=== PATIENT | male | born 1940 | race Caucasian/White ===

== ENCOUNTER 2018-09-02 23:14 | Emergency (ER) | payer OTHER ==
[2018-09-02 23:39] VITALS: BP 136/72; PULSE 84; TEMP 97.9; BMI 35.4
--- NOTE | 2018-09-03 00:22 | PDOC ---
History of Present Illness - General Chief Complaint: Injury Stated Complaint: FALL/EYE LACERATION Time Seen by Provider: 09/02/18 23:50 - History of Present Illness Initial Comments: Tae Jama is a 77yo man who presents following a mechanical fall tonight. He states that he "tripped over his own feet" and fell. He denies any preceeding symptoms including chest pain, SOB, lightheadedness, or neurological symptoms. He denies LOC, and he was able to get up on his own. He denies any new symptoms following the fall including one-sided weakness, difficulty walking , confusion, or other neurological changes. Past History - Past Medical History Allergies/Adverse Reactions: Allergies Allergy/AdvReac Type Severity Reaction Status Date / Time Penicillins Allergy Verified 09/02/18 23:36 COPD: No Disorders: Yes (Prostate Ca) HTN: Yes Other medical history: Skin Ca - Immunization History Immunization Up to Date: Yes - Suicide/Smoking/Psychosocial Hx Smoking History: Unknown if ever smoked Have you smoked in the past 12 months: No Information on smoking cessation initiated: No Hx Alcohol Use: No Drug/Substance Use Hx: No Review of Systems - Review of Systems Comments:: General: No fevers, no chills, no weight or appetite change, no malaise HEENT: No changes in vision, no changes in hearing, no congestion, no sore throat CV: No chest pain, no palpitations, no LE edema Pulm: No SOB, no cough, no wheezing GI: No nausea or vomiting, no change in bowel habits, no melena : No frequency, no urgency, no dysuria Musc: No back pain, no joint swelling, no recent injury Skin: No rash, no lesions, no erythema Endo: No excessive thirst, no heat/cold intolerance Heme: No unusual bruising or bleeding, no swollen glands Neuro: No syncope, no numbness/tingling, no focal weakness Vasc: No claudication Psych: No recent change in mood, no SI or HI *Physical Exam - Vital Signs Last Vital Signs Temp Pulse Resp BP Pulse Ox 97.9 F 84 16 136/72 100 09/02/18 23:33 09/02/18 23:33 09/02/18 23:33 09/02/18 23:33 09/02/18 23:33 - Physical Exam Comments: General: Comfortable, no acute distress HEENT: PERRL, EOMI, MMM, voice normal, normal neck ROM, no posterior neck tenderness. Left forehead w/ 1cm linear laceration over eyebrow, no active bleeding, no surrounding erythema or edema, no palpable underlying defect Cards: RRR, no murmur appreciated Pulm: Comfortable on room air, clear to auscultation bilaterally Abd: Soft, nontender, nondistended Ext: Atraumatic. No LE edema. ROM intact Vasc: Extremities WWP Neuro: A&Ox3, CN grossly intact, normal speech, motor/sensory grossly intact and symmetric Psych: Mood appropriate to situation Procedures - Laceration/Wound Repair Left Lateral Head Wound Length: to 2.5 cm Wound Explored: clean Wound's Depth, Shape: superficial Irrigated w/ Saline: Yes Wound Repaired With: Dermabond ED Treatment Course - RADIOLOGY Radiology Studies Ordered: Category Date Time Status HEAD CT WITHOUT CONTRAST [CT] Stat CT Scan 09/03/18 00:20 Ordered Medical Decision Making - Medical Decision Making 09/03/18 00:21 Tae Jama is a 77yo man who presents with a left forehead laceration following an apparently mechanical fall tonight. - Laceration to left forehead but otherwise benign exam, no neuro deficits - CT head, CT c-spine - Lac to be repaired - Pt reports tetanus within the past 5 years, does not remember exact date 09/03/18 00:54 - CT negative for acute injury - Forehead laceration cleaned and explored at bedside. Per pt request, wound was repaired with dermabond. The edges were well approximated, and adequate hemostasis was achieved. - Home care, follow up, and return precautions were discussed at length with Mr Jama. Will give contact info for the [facility] as he no longer has a PMD. Discussed with Dr Gant. Xiomara Sidhu PGY2 *DC/Admit/Observation/Transfer Diagnosis at time of Disposition: Fall Qualifiers: Encounter type: initial encounter Qualified Code(s): W19.XXXA - Unspecified fall, initial encounter Forehead laceration Qualifiers: Encounter type: initial encounter Qualified Code(s): S01.81XA - Laceration without foreign body of other part of head, initial encounter - Discharge Dispostion Disposition: HOME Condition at time of disposition: Stable Decision to Admit order: No - Referrals Referrals: [facility] [place] [Provider Group] - Patient Instructions Printed Discharge Instructions: DI for Laceration Repair With Dermabond Additional Instructions: Discharge Instructions: You were seen in the emergency department following a fall. You had a head CT that did not show any concerning injuries. You had a laceration that was repaired with a skin glue called Dermabond. Home Care and Follow Up: - The dermabond will fall off by itself over the next 1-2 weeks. It does not need to be removed - Try not to rub or scrub the wound - It is OK to wash your face and shower starting tomorrow. You may get the wound wet, but do not scrub it as the glue could come off - Allow the glue to fall off by itself. Do not pull at loose edges - You may use over the counter medications as needed for pain at home. 650- 1000mg acetaminophen (Tylenol) or 600mg ibuprofen (Motrin or Advil) can be used every 6-8 hours. If needed for continued pain, these medications may be alternated every 3-4 hours. For example, if you take ibuprofen at 9am, you may take acetaminophen at noon, ibuprofen at 3pm, etc. - It is recommended that you take ibuprofen with food to prevent upset stomach. - You may wish to apply an ice pack to your injury to help control pain and swelling. This may be applied as tolerated for the next 2-3 days. - Make an appointment to follow up with primary care within the next 1-2 weeks. You have been given contact information for the [facility]. - Seek immediate care if you have any worsening symptoms, recurrent falls, severe headache that you cannot control with mediations, any neurological symptoms (one-sided weakness, confusion, changes in speech), multiple episodes of vomiting per hour for several hours, excessive sleepiness, or any other medical emergency. - Post Discharge Activity
--- NOTE | 2018-09-03 00:44 | PDOC ---
Documentation entered by Paula Amato SCRIBE, acting as scribe for Penny Gant MD. Penny Gant MD: This documentation has been prepared by the scribe, Paula Amato SCRIBE, under my direction and personally reviewed by me in its entirety. I confirm that the documentation accurately reflects all work, treatment, procedures, and medical decision making performed by me. Attending Attestation - Resident Resident Name: Xiomara Sidhu - HPI HPI: 09/03/18 00:25 The patient is a 77 year old male with a past medical history significant for HTN presents to the emergency department s/p a mechanical fall. The patient reports he tripped over his own feet, resulting in the fall. The patient reports he sustained a laceration to his left eyebrow. Denies LOC. Denies chest pain, dizziness or SOB. Allergies: Penicillins - Physicial Exam PE: 09/03/18 00:36 well-nourished well-developed 77-year-old male presents with head trauma status post mechanical fall while leavinga restaurant Head there nely left sided forehead laceration above his eyebrow. 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 He does have a superficial abrasion on his lower leg. Abdomen protuberant, nontender, no rebound or guarding Skin warm and dry. Neuro alert and oriented 3, motor strength 5 over 5 bilaterally, ambulatory 09/03/18 00:42 - Medical Decision Making 09/03/18 00:43 ct scan of head : no acute intracranial pathology,no skull pathology plan wound will be cleansed and sutured and pt d/c home
== END 2018-09-03 01:23 | disposition home or self-care (01) ==
LOC: JER 23:14
PROC: 0HQ1XZZ Repair Face Skin, External Approach (ICD-10-PCS; principal; 2018-09-02)
DX: S01.112A Laceration without foreign body of left eyelid and periocular area, initial encounter (principal); W01.0XXA Fall on same level from slipping, tripping and stumbling without subsequent striking against object, initial encounter; Y93.89 Activity, other specified; Y92.018 Other place in single-family (private) house as the place of occurrence of the external cause; Y99.8 Other external cause status; I10 Essential (primary) hypertension; Z85.46 Personal history of malignant neoplasm of prostate; Z85.828 Personal history of other malignant neoplasm of skin
CPT/HCPCS: 12011-25; 70450-TC; 99281-25

== ENCOUNTER 2019-11-04 17:52 | Emergency (ER) | payer OTHER ==
[2019-11-04 18:27] VITALS: BMI 36.6
--- NOTE | 2019-11-04 18:46 | PDOC ---
History of Present Illness - General Chief Complaint: Injury Stated Complaint: FALL Time Seen by Provider: 11/04/19 18:45 History Source: Patient Exam Limitations: No Limitations - History of Present Illness Initial Comments: 11/04/19 18:46 Tae Jama is a 79M with PMH HTN, HLD, CHF, ?Parkinson's, basal cell carcinoma L aguilera, presenting with mechanical fall onto face and right shoulder. Patient was walking his large Labrador dog when a new mailman approached and began to doug after him with patient holding leash. Fell forward, hit head on side of car, then ground along right shoulder. Denies LOC, vision changes, N/V, dental fractures, chest pain, SOB. Per son no AMS. Takes 81mg ASA but no other AC. Also has right shoulder/elbow pain and limited ability to move arm, denies weakness, numbness to that arm. No other injuries noted. Last tetanus in the last 10 years. Allergy to PCN, unclear reaction, but son has true anaphylaxis allergy. Meds: losaratan, atorvastatin, Sinemet, Lasix, chemo cream for BCC Denies alcohol/drugs/tobacco. Past History - Medical History Allergies/Adverse Reactions: Allergies Allergy/AdvReac Type Severity Reaction Status Date / Time Penicillins Allergy Verified 11/04/19 18:20 Cancer: Yes (prostate skin) COPD: No Disorders: Yes (Prostate Ca) HTN: Yes Other medical history: parkinson - Immunization History Immunization Up to Date: Yes - Psycho-Social/Smoking History Smoking History: Former smoker Have you smoked in the past 12 months: No Information on smoking cessation initiated: No - Substance Abuse Hx (Audit-C & DAST Scrn) How often the patient has a drink containing alcohol: Monthly or less Number of drinks the patient has on a typical day: 1 or 2 How often the patient has six or more drinks on one occasion: Never Score: In Men: 4 or > Positive; In Women: 3 or > Positive: 1 Screen Result (Pos requires Nsg. Audit-10AR): Negative In the last yr the pt used illegal drug/Rx for NonMed reason: No Score: Yes response is considered Positive: 0 Screen Result (Positive result requires Nsg. DAST-10): Negative Review of Systems - Review of Systems Able to Perform ROS?: Yes Constitutional: No: Symptoms Reported HEENTM: No: Symptoms Reported Respiratory: No: Symptoms reported Cardiac (ROS): No: Symptoms Reported ABD/GI: No: Symptoms Reported : No: Symptoms Reported Musculoskeletal: Yes: Joint Swelling, Muscle Pain Integumentary: Yes: Bruising, Lesions, Lumps Neurological: No: Headache, Ataxia, Dizziness Endocrine: No: Symptoms Reported Hematologic/Lymphatic: No: Symptoms Reported All Other Systems: Reviewed and Negative *Physical Exam - Vital Signs Last Vital Signs Temp Pulse Resp BP Pulse Ox 97.7 F 73 18 126/86 98 11/04/19 18:21 11/04/19 18:21 11/04/19 18:21 11/04/19 18:21 11/04/19 18:21 - Physical Exam General Appearance: Yes: Nourished, Appropriately Dressed, Obese, Other (resting in bed with R arm in sling). No: Apparent Distress HEENT: positive: EOMI, MEGHAN, Normal Voice, Symmetrical, Pharynx Normal, Hearing Grossly Normal, Other (no dental issues). negative: Scleral Icterus (R), Scleral Icterus (L), Pharyngeal Erythema, Tonsillar Exudate, Tonsillar Erythema Neck: positive: Trachea midline, Normal Thyroid, Supple. negative: Tender, Rigid, Lymphadenopathy (R), Lymphadenopathy (L), Tender lateral, Tender midline Respiratory/Chest: positive: Lungs Clear, Normal Breath Sounds. negative: Chest Tender, Respiratory Distress, Accessory Muscle Use, Crackles, Rales, Rhonchi, St ridor, Wheezing Cardiovascular: positive: Regular Rhythm, Regular Rate. negative: Murmur Gastrointestinal/Abdominal: positive: Normal Bowel Sounds, Soft, Protuberent. negative: Tender, Organomegaly, Guarding, Rebound, Tenderness Musculoskeletal: positive: Normal Inspection. negative: CVA Tenderness, Decreased Range of Motion, Vertebral Tenderness Extremity: positive: Normal Capillary Refill, Normal Inspection, Pelvis Stable. negative: Normal Range of Motion (LUE: unable to abduct past 90 degrees but full ROM other directions, full ROM at elbow and wrist. RUE limited PROM at shoulder and elbow 2/2 pain, wrist full ROM), Tender, Delayed Capillary Refill, Pedal Edema, Swelling, Calf Tenderness Integumentary: positive: Normal Color, Dry, Warm, Bruising (right face above R forehead) Neurologic: positive: syruper II-XII NML intact, Fully Oriented, Alert, Normal Mood/Affect, Normal Response, Motor Strength 5/5. negative: Facial Droop, Sensory Deficit, Confused Medical Decision Making - Medical Decision Making 11/04/19 18:46 Patient has had mechanical fall onto face and right shoulder without concerning neuro deficits, not on AC. R shoulder possibly dislocated given decreased ROM. Getting CT head/face/c-spine and XR right shoulder/elbow. Tylenol 650mg for pain. Boostrix for face abrasion, due to a tetanus booster. 11/04/19 20:54 CT head no acute pathology CT facial bones no fracture CT c-spine arthritic changes but no fracture XR R shoulder no fracture XR R elbow no fracture Consistent with shoulder sprain vs. strain. ECG NSR with 1st degree AV block, HR 66, QTc 425, TWI in III without LUCAS/D. Will clean out wound, ambulate, and discharge home with sprain precautions and ortho f/u as needed. 11/04/19 21:33 Ambulating well, shoulder moving fine, in NAD. Stable for d/c home. Discharge - Discharge Information Problems reviewed: Yes Clinical Impression/Diagnosis: Facial trauma Qualifiers: Encounter type: initial encounter Qualified Code(s): S09.93XA - Unspecified injury of face, initial encounter Right shoulder pain Qualifiers: Chronicity: acute Qualified Code(s): M25.511 - Pain in right shoulder Condition: Stable Disposition: HOME - Admission No - Follow up/Referral Referrals: Reji Medina MD [Primary Care Provider] - Wilfredo Olivier DO [Staff Physician] - - Patient Discharge Instructions Patient Printed Discharge Instructions: DI for Shoulder Sprain Additional Instructions: Today you were evaluated for a fall onto your face and shoulder pain. All of your CT scans and X-rays are normal and do not show any fractures. Your shoulder hurts because of a muscle injury and will heal over time, but you should fully move your arm as much as possible to avoid having a frozen shoulder. If your shoulder pain does not improve, a referral to an orthopedist has been given. Take Tylenol as needed for pain and use hot packs on your shoulder. Follow-up with your regular doctor in the next few days for further care. - Post Discharge Activity
[2019-11-04] MEDS ORDERED: ACETAMINOPHEN 325 MG TABLET (FP) PO ONE (18:57)
[2019-11-04] MEDS ORDERED: ACETAMINOPHEN 325 MG TABLET (FP) ONE (19:18)
[2019-11-04] MEDS ORDERED: DIPHTH,PERTUSS(ACELL),TET 0.5 ML DISP.SYRIN IM ONE ×2 (20:54→20:56)
[2019-11-04] MEDS ORDERED: BACITRACIN 0.9 GM PACKET ONE (21:15)
[2019-11-04] MEDS ORDERED: BACITRACIN 15 GM TUBE TOPICAL OINTMENT TP ONE (21:15)
--- NOTE | 2019-11-04 21:25 | PDOC ---
Documentation entered by Mary Moise SCRIBE, acting as scribe for Sommer Smith DO. Sommer Smith DO: This documentation has been prepared by the mohinder, Mary Moise SCRIBE, under my direction and personally reviewed by me in its entirety. I confirm that the documentation accurately reflects all work, treatment, procedures, and medical decision making performed by me. Attending Attestation - Resident Resident Name: Dylon Morrell - ED Attending Attestation I have performed the following: I have examined & evaluated the patient, The case was reviewed & discussed with the resident, I agree w/resident's findings & plan, Exceptions are as noted - HPI HPI: 11/04/19 19:20 Patient is a 79 year old male with a significant past medical history of hypertension, hyperlipidemia, congestive heart failure, basal cell carcinoma L aguilera, and Parksinson's, who presents to the ED after falling onto his face and left shoulder. Patient stated he was walking his large dog when the dog started chasing the mailman and patient tried to hold onto the leash but fell forwards onto a car and then onto ground. Patient endorses: right shoulder pain, right elbow pain, and limited movement in arm Patient denies: LOC, weakness, umbness, nausea, vomiting, any vision changes, dental fractures, SOB, chest pain, any other injuries, or any other related symptoms. Allergies: Penicillins - Physicial Exam PE: 11/04/19 21:18 Gen: aaox3, nad heent: abrasion to R foreheard, eomi, mmm neck: supple heart: +s1s2 reg lungs: cta b/l abd: soft, nt/nd +bs ext: R shoulder ttp and pain with ROM, pulses intact, sensation intact, elbow with from neuro: cn ii-xii grossly intact, no focal deficits - Medical Decision Making 11/04/19 21:23 a/p: 79yo male s/p a fall -dog pulled him forward, hit his head, no loc -on asa -sent for head ct, facial bones ct, neck ct all which are neg for acute findings -xrays of shoulder and elbow neg for fx -pt tetanus unsure when updated, will update today -local wound care for abrasion to R forehead -will ambulate -if ambulatory and feels better will dc to home Heart Score/ECG Review - ECG Intrepretation Comment:: 11/04/19 21:24 sinus at 66, 1st degree av block, nl axis, t wave inversions III which are nonspecific, no acute st changes Discharge - Discharge Information Problems reviewed: Yes Clinical Impression/Diagnosis: Facial trauma Qualifiers: Encounter type: initial encounter Qualified Code(s): S09.93XA - Unspecified injury of face, initial encounter Right shoulder pain Qualifiers: Chronicity: acute Qualified Code(s): M25.511 - Pain in right shoulder Condition: Stable Disposition: HOME - Admission No - Follow up/Referral Referrals: Wilfredo Olivier DO [Staff Physician] - Reji Medina MD [Primary Care Provider] - - Patient Discharge Instructions Patient Printed Discharge Instructions: DI for Shoulder Sprain Additional Instructions: Today you were evaluated for a fall onto your face and shoulder pain. All of your CT scans and X-rays are normal and do not show any fractures. Your shoulder hurts because of a muscle injury and will heal over time, but you should fully move your arm as much as possible to avoid having a frozen shoulder. If your shoulder pain does not improve, a referral to an orthopedist has been given. T woody Tylenol as needed for pain and use hot packs on your shoulder. Follow-up with your regular doctor in the next few days for further care. - Post Discharge Activity
[2019-11-05 03:32] VITALS: BP 128/79; PULSE 82; TEMP 98.6
--- NOTE | 2019-11-05 09:53 | EKG ---
Test Reason : Blood Pressure : / mmHG Vent. Rate : 066 BPM Atrial Rate : 066 BPM P-R Int : 284 ms QRS Dur : 100 ms QT Int : 406 ms P-R-T Axes : 026 -17 004 degrees QTc Int : 425 ms SINUS RHYTHM WITH 1ST DEGREE A-V BLOCK LOW VOLTAGE QRS BORDERLINE ECG NO PREVIOUS ECGS AVAILABLE Confirmed by DIANA DASH MD ([id number]) on 11/05/2019 9:53:16 AM Referred By: Confirmed By:DIANA DASH MD
== END 2019-11-04 21:31 | disposition home or self-care (01) ==
LOC: JER 17:52
PROC: 3E0234Z Introduction of Serum, Toxoid and Vaccine into Muscle, Percutaneous Approach (ICD-10-PCS; principal; 2019-11-04)
DX: S09.93XA Unspecified injury of face, initial encounter (principal); M25.511 Pain in right shoulder
CPT/HCPCS: 70450-TC; 70486-TC; 72125-TC; 73030-TC-RT-FY; 73070-TC-RT-FY; 90715; 93005; 93010; 99285-25

== ENCOUNTER 2021-06-19 17:27 | Inpatient (IN) | payer OTHER, BC ==
[2021-06-19 18:47] LABS: BASO % 0.4 % (0-2.0); EOS % 0.2 % (0-4.5); HEMATOCRIT 43.3 % (35.4-49); HEMOGLOBIN 14.9 GM/dL (11.7-16.9); LYMPH % 7.1 % (8-40); MCH 30.5 pg (25.7-33.7); MCHC 34.3 g/dl (32.0-35.9); MEAN PLT VOLUME 7.2 fl (7.5-11.1); NEUT % 87.3 % (42.8-82.8); PLATELET COUNT 213 10^3/uL (134-434); RBC 4.87 M/mm3 (4.00-5.60); RDW 14.4 % (11.9-15.9); WHITE BLOOD COUNT 11.5 K/mm3 (4.0-10.0)
[2021-06-19 18:54] LABS: INR 1.06 (0.83-1.09); PROTHROMBIN TIME (PATIENT) 12.2 SEC (9.7-13.0)
[2021-06-19 18:57] LABS: ACTIVATED PTT 30.8 SECONDS (25.2-36.5)
[2021-06-19 19:07] LABS: CALCIUM 8.4 mg/dL (8.5-10.1)
[2021-06-19 19:08] LABS: ALBUMIN 3.6 g/dl (3.4-5.0); MAGNESIUM 2.2 mg/dL (1.8-2.4)
[2021-06-19 19:11] LABS: PHOSPHOROUS 2.6 mg/dL (2.5-4.9)
[2021-06-19 19:13] LABS: BILIRUBIN,TOTAL 0.8 mg/dL (0.2-1)
[2021-06-19 19:16] LABS: N-TERMINAL BNP 169.7 pg/ml (5-450)
[2021-06-19] MEDS ORDERED: SODIUM CHLORIDE 0.9% 500 ML INFUS.BAG IV ONE (20:01)
[2021-06-19] MEDS ORDERED: SODIUM CHLORIDE 1,000 ML IV SCH (22:15)
[2021-06-19] MEDS ORDERED: HEPARIN NA (PORCINE) 5,000 UNITS/ML 1ML VIAL ONE (22:43)
[2021-06-19] MEDS: HEPARIN NA (PORCINE) 5,000 UNITS/ML 1ML VIAL SQ SCH (22:49)
[2021-06-20 00:45] LABS: PH,URINE 5.5 (5.0-8.0); URINE APPEARANCE CLEAR; URINE BILIRUBIN NEGATIVE (NEGATIVE); URINE COLOR YELLOW; URINE GLUCOSE (UA) NEGATIVE (NEGATIVE); URINE KETONE TRACE (NEGATIVE); URINE LEUK ESTERASE NEGATIVE (NEGATIVE); URINE NITRITE NEGATIVE (NEGATIVE); URINE PROTEIN NEGATIVE (NEGATIVE); URINE UROBILINOGEN 0.2 mg/dL (0.2-1.0)
[2021-06-20] MEDS ORDERED: guaiFENesin 200 MG/10 ML 10 ML UNIT-DOSE CUPS PO ONE (02:50)
[2021-06-20] MEDS: CARBIDOPA/LEVODOPA 25/100 TABLET (FP) PO SCH ×3 (05:50→21:26)
[2021-06-20] MEDS: HEPARIN NA (PORCINE) 5,000 UNITS/ML 1ML VIAL SQ SCH ×3 (05:50→21:26)
[2021-06-20] MEDS: LOSARTAN POTASSIUM 50 MG TABLET PO SCH ×2 (05:50→09:13)
[2021-06-20] MEDS: INSULIN SLIDING SCALE (NOVOLOG) 1 VIAL SQ SCH ×4 (06:12→21:37)
[2021-06-20 07:58] LABS: BASO % 0.5 % (0-2.0); EOS % 1.3 % (0-4.5); HEMATOCRIT 37.8 % (35.4-49); HEMOGLOBIN 13.2 GM/dL (11.7-16.9); LYMPH % 18.5 % (8-40); MEAN CELL VOLUME 88.6 fl (80-96); MEAN PLT VOLUME 7.4 fl (7.5-11.1); MONO % 8.2 % (3.8-10.2); NEUT % 71.5 % (42.8-82.8); PLATELET COUNT 193 10^3/uL (134-434); RBC 4.26 M/mm3 (4.00-5.60); RDW 14.4 % (11.9-15.9); WHITE BLOOD COUNT 7.4 K/mm3 (4.0-10.0)
[2021-06-20 08:18] LABS: CALCIUM 7.6 mg/dL (8.5-10.1); MAGNESIUM 2.1 mg/dL (1.8-2.4)
[2021-06-20 08:21] LABS: CREATININE 0.8 mg/dL (0.55-1.3); PHOSPHOROUS 2.8 mg/dL (2.5-4.9)
[2021-06-20 08:23] LABS: BILIRUBIN,TOTAL 1.1 mg/dL (0.2-1); TOT PROT 5.8 g/dl (6.4-8.2)
[2021-06-20] MEDS: ASPIRIN 81 MG CHEWABLE TABLETS PO SCH (09:13)
[2021-06-20] MEDS ORDERED: SODIUM CHLORIDE 1,000 ML IV SCH (12:00)
[2021-06-20] MEDS: LACTATED RINGERS SOLUTION 1,000 ML/1,000 ML INFUS.BAG IV SCH (12:40)
[2021-06-20] MEDS ORDERED: ATORVASTATIN CA 20 MG TABLET (FP) PO SCH (22:00)
[2021-06-21] MEDS ORDERED: guaiFENesin 200 MG/10 ML 10 ML UNIT-DOSE CUPS PO ONE (04:23)
[2021-06-21] MEDS: INSULIN SLIDING SCALE (NOVOLOG) 1 VIAL SQ SCH (06:15)
[2021-06-21] MEDS: HEPARIN NA (PORCINE) 5,000 UNITS/ML 1ML VIAL SQ SCH ×3 (06:19→21:31)
[2021-06-21] MEDS: CARBIDOPA/LEVODOPA 25/100 TABLET (FP) PO SCH ×3 (06:20→21:32)
[2021-06-21 07:39] LABS: BASO % 0.7 % (0-2.0); HEMATOCRIT 36.6 % (35.4-49); HEMOGLOBIN 12.9 GM/dL (11.7-16.9); LYMPH % 20.8 % (8-40); MCH 31.3 pg (25.7-33.7); MCHC 35.3 g/dl (32.0-35.9); MEAN CELL VOLUME 88.8 fl (80-96); MEAN PLT VOLUME 7.2 fl (7.5-11.1); MONO % 9.1 % (3.8-10.2); NEUT % 66.4 % (42.8-82.8); PLATELET COUNT 173 10^3/uL (134-434); RBC 4.12 M/mm3 (4.00-5.60); RDW 14.2 % (11.9-15.9); WHITE BLOOD COUNT 6.6 K/mm3 (4.0-10.0)
[2021-06-21 07:46] LABS: CALCIUM 7.6 mg/dL (8.5-10.1)
[2021-06-21 07:47] LABS: ALBUMIN 2.7 g/dl (3.4-5.0); BLOOD UREA NITROGEN 11.9 mg/dL (7-18); MAGNESIUM 1.9 mg/dL (1.8-2.4)
[2021-06-21 07:50] LABS: CREATININE 0.7 mg/dL (0.55-1.3)
[2021-06-21 07:51] LABS: BILIRUBIN,TOTAL 0.9 mg/dL (0.2-1); TOT PROT 5.4 g/dl (6.4-8.2)
[2021-06-21 07:53] LABS: PHOSPHOROUS 2.9 mg/dL (2.5-4.9)
[2021-06-21] MEDS: LOSARTAN POTASSIUM 50 MG TABLET PO SCH (09:11)
[2021-06-21] MEDS: LACTATED RINGERS SOLUTION 1,000 ML/1,000 ML INFUS.BAG IV SCH ×2 (09:12→12:01)
[2021-06-21] MEDS: ASPIRIN 81 MG CHEWABLE TABLETS PO SCH (09:12)
[2021-06-21] MEDS ORDERED: METOPROLOL TARTRATE 25 MG TABLET (FP) PO SCH (12:30)
[2021-06-21] MEDS: metoPROLOL SUCCINATE 25 MG TAB.SR.24H (FP) PO SCH (13:02)
[2021-06-21] MEDS ORDERED: SENNOSIDES 8.6MG TABLET (FP) PO PRN (16:33)
[2021-06-21] MEDS: POLYETHYLENE GLYCOL (HEALTHYLAX) 3350 17 GM PACKET PO SCH (21:34)
[2021-06-21 23:52] VITALS: BMI 38.2
[2021-06-22] MEDS: HEPARIN NA (PORCINE) 5,000 UNITS/ML 1ML VIAL SQ SCH ×2 (06:23→14:18)
[2021-06-22] MEDS: CARBIDOPA/LEVODOPA 25/100 TABLET (FP) PO SCH ×2 (06:24→14:19)
[2021-06-22 07:54] LABS: BASO % 0.6 % (0-2.0); EOS % 3.1 % (0-4.5); HEMATOCRIT 39.9 % (35.4-49); HEMOGLOBIN 13.7 GM/dL (11.7-16.9); LYMPH % 21.6 % (8-40); MCH 30.6 pg (25.7-33.7); MCHC 34.3 g/dl (32.0-35.9); MEAN CELL VOLUME 89.1 fl (80-96); MEAN PLT VOLUME 7.4 fl (7.5-11.1); MONO % 9.1 % (3.8-10.2); NEUT % 65.6 % (42.8-82.8); PLATELET COUNT 211 10^3/uL (134-434); RBC 4.48 M/mm3 (4.00-5.60); RDW 14.4 % (11.9-15.9); WHITE BLOOD COUNT 7.3 K/mm3 (4.0-10.0)
[2021-06-22 08:15] LABS: CHLORIDE 107 mmol/L (98-107); SODIUM 141 mmol/L (136-145)
[2021-06-22 08:18] LABS: ANION GAP 6 MMOL/L (8-16); BLOOD UREA NITROGEN 11.5 mg/dL (7-18); CALCIUM 8.2 mg/dL (8.5-10.1); CO2 28 mmol/L (21-32); GLUCOSE,RANDOM 94 mg/dL (74-106)
[2021-06-22 08:21] LABS: CREATININE 0.7 mg/dL (0.55-1.3); SGOT/AST 32 U/L (15-37); SGPT/ALT 13 U/L (13-61)
[2021-06-22 08:23] LABS: BILIRUBIN,TOTAL 1.1 mg/dL (0.2-1)
[2021-06-22 08:24] LABS: ALK PHOS 67 U/L (45-117)
[2021-06-22] MEDS: LOSARTAN POTASSIUM 50 MG TABLET PO SCH (09:15)
[2021-06-22] MEDS: ASPIRIN 81 MG CHEWABLE TABLETS PO SCH (09:15)
[2021-06-22] MEDS: metoPROLOL SUCCINATE 25 MG TAB.SR.24H (FP) PO SCH (09:15)
[2021-06-22] MEDS: POLYETHYLENE GLYCOL (HEALTHYLAX) 3350 17 GM PACKET PO SCH (09:15)
[2021-06-22 12:45] VITALS: BP 159/97; PULSE 68; TEMP 98.8
[2021-06-22] MEDS ORDERED: metoPROLOL SUCCINATE 25 MG TAB.SR.24H (FP) PO SCH (22:00)
== END 2021-06-22 17:24 | disposition home health service (06) | DRG 57 ==
LOC: JER 17:27 → JERBED 18:21 → J4W 23:17
PROVIDERS: ADMIT Hospitalist; ATTEND Internal Medicine
DX: G20 Parkinson's disease (principal); I47.1 Supraventricular tachycardia; M62.82 Rhabdomyolysis; R55 Syncope and collapse; I10 Essential (primary) hypertension; E78.5 Hyperlipidemia, unspecified; E11.9 Type 2 diabetes mellitus without complications; I87.8 Other specified disorders of veins; Z85.828 Personal history of other malignant neoplasm of skin; Z96.652 Presence of left artificial knee joint; Z85.46 Personal history of malignant neoplasm of prostate; W18.11XA Fall from or off toilet without subsequent striking against object, initial encounter; Y92.091 Bathroom in other non-institutional residence as the place of occurrence of the external cause; Z88.0 Allergy status to penicillin; Z96.643 Presence of artificial hip joint, bilateral
CPT/HCPCS: 36415; 70450-TC; 71045-TC-FY; 72125-TC; 72170-TC-FY; 73560-TC-LT-FY; 80053; 81003; 82550; 82553; 82962; 83036; 83735; 83880; 84100; 84436; 84443; 84484; 85025; 85610; 85730; 87086; 93005; 93010; 93306-TC; 93880-TC; 97116-GP; 97162-GP; 99285-25; C9803-CS; J1644; U0003; U0005

== ENCOUNTER 2023-01-05 11:35 | Emergency (ER) | payer OTHER, BC ==
[2023-01-05 12:14] VITALS: BP 130/90; PULSE 68; RESP 18; TEMP 98.4; BMI 37.6
[2023-01-05] MEDS ORDERED: ALBUTEROL SULFATE 0.021% (0.63 MG/3 ML) VIAL.NEB NEB ONE (12:53)
[2023-01-05] MEDS ORDERED: ALBUTEROL SO4 0.083% IH SOL 2.5 MG/3 ML VIAL.NEB. NEB ONE (13:02)
[2023-01-05 13:33] LABS: BASO % 0.5 % (0-2.0); EOS % 3.1 % (0-4.5); HEMATOCRIT 39.5 % (35.4-49); HEMOGLOBIN 13.4 GM/dL (11.7-16.9); LYMPH % 15.3 % (8-40); MCH 30.3 pg (25.7-33.7); MCHC 33.9 g/dl (32.0-35.9); MEAN CELL VOLUME 89.4 fl (80-96); MEAN PLT VOLUME 6.7 fl (7.5-11.1); MONO % 9.5 % (3.8-10.2); NEUT % 71.6 % (42.8-82.8); PLATELET COUNT 183 10^3/uL (134-434); RBC 4.41 M/mm3 (4.00-5.60); RDW 14.6 % (11.9-15.9); WHITE BLOOD COUNT 6.9 K/mm3 (4.0-10.0)
[2023-01-05 14:12] LABS: POTASSIUM 3.5 mmol/L (3.5-5.1)
[2023-01-05 14:15] LABS: BLOOD UREA NITROGEN 11.5 mg/dL (7-18); CALCIUM 7.8 mg/dL (8.5-10.1)
[2023-01-05] MEDS ORDERED: DEXAMETHASONE SOD PHOSPHATE 10 MG/1 ML VIAL IVPUSH ONE (14:15)
[2023-01-05 14:19] LABS: BILIRUBIN,TOTAL 0.8 mg/dL (0.2-1)
[2023-01-05] MEDS ORDERED: DEXAMETHASONE SOD PHOSPHATE 10 MG/1 ML VIAL ONE (14:19)
[2023-01-05 14:23] LABS: N-TERMINAL BNP 214.9 pg/ml (5-450)
== END 2023-01-05 16:26 | disposition home or self-care (01) ==
LOC: JER 11:35
PROC: 3E033GC Introduction of Other Therapeutic Substance into Peripheral Vein, Percutaneous Approach (ICD-10-PCS; principal; 2023-01-05)
PROC: 3E0F7GC Introduction of Other Therapeutic Substance into Respiratory Tract, Via Natural or Artificial Opening (ICD-10-PCS; 2023-01-05)
DX: R05.9 Cough, unspecified (principal); R06.2 Wheezing; R53.1 Weakness; R22.43 Localized swelling, mass and lump, lower limb, bilateral; R06.02 Shortness of breath; R09.81 Nasal congestion; B97.4 Respiratory syncytial virus as the cause of diseases classified elsewhere; Z20.822 Contact with and (suspected) exposure to COVID-19
CPT/HCPCS: 0241U-QW; 36415; 71045-TC-FY; 80053; 83735; 83880; 84484; 85025; 93005; 93010; 99285-25; J1100